=== PATIENT | female | born 1960 | race Caucasian/White ===

== ENCOUNTER 2019-04-27 05:28 | Outpatient (CLI) | payer BC ==
[~2019-04-27] VITALS: Ht 162 cm; Wt 66.3 kg
[2019-04-29] MEDS ORDERED: HYDR-3812 PO (10:09)
== END 2019-04-27 10:34 | disposition home or self-care (01) ==
LOC: PREOP 05:28
PROVIDERS: ATTEND Otolaryngology Otolaryngology/Facial Plastic Surgery
DX: Z01.818 Encounter for other preprocedural examination (principal)